=== PATIENT | female | born 1970 | race Two or more races ===

== ENCOUNTER 2020-12-13 08:08 | Emergency (ER) | payer OTHER ==
[~2020-12-13] VITALS: Ht 152.4 cm; Wt 62.6 kg
[~2020-12-13 08:08] MED LIST: SYNTHROID88 MCG
== END 2020-12-13 11:47 | disposition home or self-care (01) ==
LOC: ER 08:08
DX: S91.022A Laceration with foreign body, left ankle, initial encounter (principal); W18.09XA Striking against other object with subsequent fall, initial encounter; Y93.89 Activity, other specified; Y92.091 Bathroom in other non-institutional residence as the place of occurrence of the external cause; Y99.8 Other external cause status; E03.8 Other specified hypothyroidism

== ENCOUNTER → 2020-12-29 | Emergency (ER) | payer OTHER ==
[~2020-12-29] VITALS: Ht 152.4 cm; Wt 62.6 kg
== END | disposition left against medical advice (07) ==
LOC: ER 14:45
DX: Z53.20 Procedure and treatment not carried out because of patient's decision for unspecified reasons (principal)